=== PATIENT | female | born 1945 | race African-American/Black ===

== ENCOUNTER 2017-07-27 13:12 | Emergency (ER) | payer MEDICARE, MEDICAID ==
[~2017-07-27] VITALS: Ht 157.5 cm; Wt 48.5 kg
[~2017-07-27 13:12] MED LIST: BACTRIM DS TAB1 EAC1 ORAL; CIPROFLOXACIN500 M2 ORAL; COLACE100 MG ORAL; IBUPROFEN600 MG ORAL; METRONIDAZOLE500 MG ORAL; NORCO 5-325 TA1 EACH ORAL; NORVASC10 MG ORAL
[2017-07-27] MEDS ORDERED: Tetanus/Diptheria/Pertussis Vaccine 0.5ml Syr IM ONE (13:45)
[2017-07-27] MEDS ORDERED: Bacitracin Oint UD TOPIC ONE (14:00)
[2017-07-27] MEDS ORDERED: BACITRACIN-P28.35 GM TP (14:32)
[2017-07-27] MEDS ORDERED: TYLENOL EXTRA500 MG ORAL (14:32)
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
[2017-07-27 18:13] VITALS: BP 142/78
== END 2017-07-27 18:14 | disposition home or self-care (01) ==
LOC: EMR 14:24
DX: S00.01XA Abrasion of scalp, initial encounter (principal); I10 Essential (primary) hypertension; K57.90 Diverticulosis of intestine, part unspecified, without perforation or abscess without bleeding; W20.8XXA Other cause of strike by thrown, projected or falling object, initial encounter; Y92.810 Car as the place of occurrence of the external cause
CPT/HCPCS: 90471; 90715; 96372; 99284